=== PATIENT | male | born 1955 | race Caucasian/White ===

== ENCOUNTER 2022-12-12 14:24 | Emergency (ER) | payer OTHER ==
[2022-12-12 14:30] VITALS: BP 149/70
--- NOTE | 2022-12-12 15:18 | ED Physician Documentation ---
History of Present Illness - Stated complaint Stated Complaint: LT SHOULDER INJ - Chief complaint Chief Complaint: Trauma Ext - Additonal information Additional information: 67-year-old male presents emergency department for evaluation of 1 week left shoulder pain. 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 He states that he has had pain moving the shoulder since. He has no history of previous injury to this shoulder. He is right arm dominant. Did not strike his head or lose consciousness. He is not anticoagulated. Review of Systems Constitutional: denies: Fever, Chills Musculoskeletal: reports: Joint pain PD PAST MEDICAL HISTORY - Past Medical History Cardiovascular: Hypertension, High cholesterol, Coronary artery disease - Present Medications Home Medications: Ambulatory Orders Medication Instructions Recorded Confirmed Carvedilol [Coreg] 25 mg PO BID 12/12/22 12/12/22 Felodipine [Felodipine ER] 5 mg ORAL DAILY 12/12/22 12/12/22 Fluoxetine HCl [Prozac] 40 mg PO DAILY 12/12/22 12/12/22 Omeprazole 40 mg PO DAILY 12/12/22 12/12/22 Trazodone HCl 150 mg PO DAILY 12/12/22 12/12/22 - Allergies Allergies/Adverse Reactions: Allergies Allergy/AdvReac Type Severity Reaction Status Date / Time No Known Drug Allergies Allergy Verified 12/12/22 14:28 - Social History Does the pt smoke?: No Smoking Status: Never smoker Does the pt drink ETOH?: Yes Does the pt have substance abuse?: No - Immunizations Immunizations are current?: Yes PD ED PE NORMAL - General General: Alert and oriented X 3, No acute distress - HEENT HEENT: PERRL - Neck Neck: Supple, no meningeal sign - Cardiac Cardiac: RRR, No murmur - Respiratory Respiratory: No respiratory distress - Extremities Extremities: No deformity. No: No tenderness to palpate (Tenderness with palpation of the proximal humerus and biceps region without ecchymosis or swelling. 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 However occult injury cannot be excluded.) PD Medical Decision Making - ED course Complexity details: reviewed results, re-evaluated patient, d/w patient ED course: 67-year-old male here with 1 week of left shoulder pain after falling off a stepstool when throwing logs into the back of a truck while at work. He is unable to elevate the arm at the shoulder though no obvious deformity is present. He is otherwise neurovascularly intact. An x-ray as interpreted by the radiologist showed no acute fracture or dislocation. However the exam is most consistent with a rotator cuff pathology or shoulder impingement. He is placed in a sling advised to continue Tylenol and ibuprofen. He is advised to have follow-up with orthopedics for longer-term evaluation and management Departure - Departure Disposition: 01 Home, Self Care Clinical Impression: Left shoulder pain Qualifiers: Chronicity: acute Qualified Code(s): M25.512 - Pain in left shoulder Rotator cuff dysfunction Qualifiers: Laterality: left Qualified Code(s): M67.912 - Unspecified disorder of synovium and tendon, left shoulder Condition: Stable Instructions: ED Torn Rotator Cuff Comments: Addy cash are seen today in the emergency department because about a week ago you fell off a stepstool and throwing logs into the truck for work. He fell directly onto the shoulder but since then you have been unable to elevate your arm. The x-ray does not show a broken bone but your examination is most consistent with a rotator cuff injury. We are placing you in a shoulder sling. I encourage you to wear the sling to your comfort though it is important you continue to try and range your shoulder and do big elephant swings with it to prevent a frozen joint. Please follow-up with any of the local walk-in clinic providers for reevaluation. You would likely benefit from referral to orthopedics for further evaluation and management of your shoulder injury
--- NOTE | 2022-12-12 15:18 | XRAY Report ---
PROCEDURE: Shoulder 3 View LT INDICATIONS: Injury TECHNIQUE: 3 views of the shoulder were acquired. COMPARISON: None. FINDINGS: Bones: No fractures or dislocations. No suspicious bony lesions. Visualized ribs appear intact. Moderate acromioclavicular degenerative narrowing. Soft tissues: No suspicious soft tissue calcifications. IMPRESSION: No visualized acute fracture or dislocation. However, occult injury cannot be excluded. Recommend jono rt interval imaging follow-up in 7-10 days as clinically indicated for additional evaluation. Reviewed by: Goldie Olivares MD on 12/12/2022 3:17 PM PDT Approved by: Goldie Olivares MD on 12/12/2022 3:17 PM PDT Station ID: [id number]
== END 2022-12-12 15:46 | disposition home or self-care (01) ==
LOC: ED 14:24
DX: M67.912 Unspecified disorder of synovium and tendon, left shoulder (principal); W17.89XA Other fall from one level to another, initial encounter; Y99.0 Civilian activity done for income or pay; I10 Essential (primary) hypertension
CPT/HCPCS: 1040M; 73030; 99283